=== PATIENT | female | born 1975 | race Caucasian/White ===

== ENCOUNTER → 2016-03-18 | Outpatient (CLI) | payer OTHER ==
[2016-03-18 12:14] LABS: BASO % 0 % (0-3); EOS % 1 % (0-3); HEMATOCRIT 36.8 % (36.0-47.0); HEMOGLOBIN 12.5 g/dL (12.0-15.5); LYMPH # 2.8 x10^3/uL (1.0-4.8); LYMPH % 36 % (24-48); MEAN CORPUSCULAR HEMOGLOBIN 29 pg (25-35); MEAN CORPUSCULAR HGB CONC 34 g/dL (31-37); MEAN CORPUSCULAR VOLUME 87 fL (79-100); MONO % 11 % (0-9); NEUT % 52 % (31-73); PLATELET COUNT 350 x10^3/uL (140-400); RED BLOOD COUNT 4.26 x10^6/uL (3.50-5.40); RED CELL DISTRIBUTION WIDTH 13.1 % (11.5-14.5); WHITE BLOOD COUNT 7.7 x10^3/uL (4.0-11.0)
[2016-03-18 12:26] LABS: ALBUMIN 3.9 g/dL (3.4-5.0); ALBUMIN/GLOBULIN RATIO 1.2 (1.0-1.7); CALCIUM 8.4 mg/dL (8.5-10.1); CREATININE 0.6 mg/dL (0.6-1.0); GFR 110.2; POTASSIUM 3.8 mmol/L (3.5-5.1); TOTAL BILIRUBIN 0.4 mg/dL (0.2-1.0); TOTAL PROTEIN 7.2 g/dL (6.4-8.2)
[2016-03-18 12:30] LABS: CHOLESTEROL/HDL RATIO 5.1
== END | disposition home or self-care (01) ==
LOC: LAB 11:48
PROVIDERS: ATTEND Family Medicine
DX: E03.9 Hypothyroidism, unspecified (principal); D64.9 Anemia, unspecified; E55.9 Vitamin D deficiency, unspecified
CPT/HCPCS: 36415; 80053; 80061; 82306; 84443; 85027

== ENCOUNTER → 2016-04-29 | Outpatient (CLI) | payer OTHER ==
--- NOTE | 2016-04-29 17:20 | RAD ---
EXAM: Left foot 3 views. HISTORY: Lateral left foot pain. COMPARISON: None. FINDINGS: No fractures are identified. Joint spaces and alignment are maintained. There is a small plantar calcaneal spur. IMPRESSION: 1. No fracture.
== END | disposition home or self-care (01) ==
LOC: RAD 12:09
PROVIDERS: ATTEND Nurse Practitioner Family
DX: M79.672 Pain in left foot (principal); M77.32 Calcaneal spur, left foot
CPT/HCPCS: 73630

== ENCOUNTER 2016-08-25 10:34 | Day surgery (SDC) | payer OTHER ==
[~2016-08-25] VITALS: Ht 162.6 cm; Wt 70.3 kg
[~2016-08-25 10:34] MED LIST: BALANCED SALT IRRIG OPHTH SOLN 15 ML BOTTLE. ONE; CHONDROIT-SOD-HYALURONATE KIT. ONE; CIPROFLOXACIN 0.3% OPHTH SOLUTION 5ML BOTTLE. OD ONE; IV RINGERS,LACTATED 1000ML 1,000 ML IV SCH; LIDOCAINE 1% 1 ML SYRINGE. ID PRN; LIDOCAINE 1% PF 2 ML VIAL. ONE; LIDOCAINE 2% JELLY 6ML IN APPLICATOR. MM PRN; NEO/POLYMYX/DEXAMETH OPHTH OINTMENT 3.5GM TUBE. ONE; PROPARACAINE 0.5% OPHTH SOLUTION 15ML BOTTLE. OD ONE
[2016-08-25] MEDS: PHENYLEPHRINE 10% OPHTH SOLUTION 5ML BOTTLE. OD SCH ×3 (11:20→11:30)
[2016-08-25] MEDS ORDERED: CHOL10003 PO (11:29)
[2016-08-25] MEDS ORDERED: NAPR500T3 PO (11:30)
[2016-08-25] MEDS ORDERED: FERR-26 PO (11:30)
[2016-08-25] MEDS: CYCLOPENTOLATE 1% OPTH SOLUTION 2ML BOTTLE. OD SCH ×3 (11:34→11:41)
[2016-08-25 11:40] LABS: NEG OBC UR NEG; POS OBC UR POS
[2016-08-25] MEDS ORDERED: MIDAZOLAM HCL/PF 2 MG/2 ML VIAL. ONE (12:18)
[2016-08-25] MEDS ORDERED: CHONDROIT-SOD-HYALURONATE KIT. ONE (12:46)
[2016-08-25] MEDS ORDERED: CHONDROITIN-SOD-HYALURONATE 0.5 ML DISP.SYRIN. ONE (12:46)
[2016-08-25 13:00] VITALS: BP 127/72
--- NOTE | 2016-08-25 20:14 | OP ---
DATE OF SURGERY: 08/25/2016 PREOPERATIVE DIAGNOSIS: Posterior subcapsular cataract, right eye. POSTOPERATIVE DIAGNOSIS: Posterior subcapsular cataract, right eye. PROCEDURE: Phacoemulsification with posterior chamber lens implant, right eye. ANESTHESIA: Topical with MAC. DESCRIPTION OF PROCEDURE: The patient's dilating drops and topical anesthesia were applied in the holding room and the [place] balloon cuff placed over the eye and inflated to 30 mmHg and allowed to act for about 15 minutes. The patient was then brought to the operating room and positioned on the table and the eye was prepped and draped in usual sterile manner for an intraocular procedure. A lid speculum was placed within the eyelids and the operating scope brought into position. A paracentesis incision was made superior temporally and 1% lidocaine injected in the anterior chamber. This was followed by an injection of Viscoat and then the primary 2.4 mm incision was made temporally. A capsulorrhexis was performed and the lens nucleus hydrodissected. The lens nucleus was then phacoemulsified without any difficulty ____. The cortex was cleaned up with the I/A handle. The bag was insufflated with Provisc and a posterior chamber lens implant was injected in the anterior chamber and positioned in the bag without difficulty. The Provisc was aspirated using the I/A handle. The wound was pressurized and the implant checked for final position and everything looked good. There was no wound leakage. The speculum and drape were removed and Maxitrol ointment instilled into the conjunctival sac and the eye was shielded. The patient was taken into the recovery room for postop discharge instructions. I will see the patient in 2 days in my office. K JANNETTE GODDARD MD DR: ANDREW/sasha JOB#: [id number] / [id number]
== END 2016-08-25 13:30 | disposition home or self-care (01) ==
LOC: SURG 10:34
PROVIDERS: ATTEND Ophthalmology
DX: H26.8 Other specified cataract (principal); D64.9 Anemia, unspecified; Z87.39 Personal history of other diseases of the musculoskeletal system and connective tissue; Z88.6 Allergy status to analgesic agent
CPT/HCPCS: 66984; 81025; C1780; J0171; J2250

== ENCOUNTER 2016-09-05 11:09 | Day surgery (SDC) | payer OTHER ==
[~2016-09-05 11:09] MED LIST changes: -BALANCED SALT IRRIG OPHTH SOLN 15 ML BOTTLE. ONE; +CHOL10003 PO; -CHONDROIT-SOD-HYALURONATE KIT. ONE; -CIPROFLOXACIN 0.3% OPHTH SOLUTION 5ML BOTTLE. OD ONE; +CIPROFLOXACIN 0.3% OPHTH SOLUTION 5ML BOTTLE. OS ONE; +CYCLOPENTOLATE 1% OPTH SOLUTION 2ML BOTTLE. OS SCH; +FERR-26 PO; -IV RINGERS,LACTATED 1000ML 1,000 ML IV SCH; -LIDOCAINE 1% 1 ML SYRINGE. ID PRN; -LIDOCAINE 1% PF 2 ML VIAL. ONE; -LIDOCAINE 2% JELLY 6ML IN APPLICATOR. MM PRN; +NAPR500T3 PO; -NEO/POLYMYX/DEXAMETH OPHTH OINTMENT 3.5GM TUBE. ONE; -PROPARACAINE 0.5% OPHTH SOLUTION 15ML BOTTLE. OD ONE
[2016-09-05] MEDS ORDERED: PHENYLEPHRINE 2.5% OPHTH SOLUTION 2ML BOTTLE. OS SCH (11:11)
[2016-09-05] MEDS ORDERED: PHENYLEPHRINE 10% OPHTH SOLUTION 5ML BOTTLE. OS SCH (11:11)
[2016-09-05] MEDS ORDERED: PROPARACAINE 0.5% OPHTH SOLUTION 15ML BOTTLE. OS ONE (11:11)
[2016-09-05 11:49] LABS: NEG OBC UR NEG; POS OBC UR POS
[2016-09-05] MEDS ORDERED: IV RINGERS,LACTATED 1000ML 1,000 ML IV ONE (12:00)
[2016-09-05] MEDS: LIDOCAINE 2% JELLY 6ML IN APPLICATOR. MM PRN ×2 (12:07→12:21)
[2016-09-05] MEDS ORDERED: NEO/POLYMYX/DEXAMETH OPHTH OINTMENT 3.5GM TUBE. OS ONE (12:56)
[2016-09-05] MEDS ORDERED: LIDOCAINE 1% PF 2 ML VIAL. INJ ONE (12:56)
[2016-09-05] MEDS ORDERED: BALANCED SALT IRRIG OPHTH SOLN 15 ML BOTTLE. IO ONE (12:56)
[2016-09-05] MEDS ORDERED: CHONDROIT-SOD-HYALURONATE KIT. OS ONE (12:56)
[2016-09-05 13:26] VITALS: BP 119/66
== END 2016-09-05 14:06 | disposition home or self-care (01) ==
LOC: SURG 11:09
PROVIDERS: ATTEND Ophthalmology
DX: H26.9 Unspecified cataract (principal); D64.9 Anemia, unspecified; Z72.89 Other problems related to lifestyle; Z88.6 Allergy status to analgesic agent; Z98.41 Cataract extraction status, right eye; Z87.39 Personal history of other diseases of the musculoskeletal system and connective tissue
CPT/HCPCS: 66984; 81025; C1780; J0171

== ENCOUNTER → 2016-09-11 | Outpatient (CLI) | payer OTHER ==
[2016-09-05 13:26] VITALS: BP 119/66
[~2016-09-11] MED LIST changes: -CIPROFLOXACIN 0.3% OPHTH SOLUTION 5ML BOTTLE. OS ONE; -CYCLOPENTOLATE 1% OPTH SOLUTION 2ML BOTTLE. OS SCH
[2016-09-11 10:22] LABS: BASO % 0 % (0-3); EOS % 1 % (0-3); HEMATOCRIT 37.5 % (36.0-47.0); LYMPH # 2.2 x10^3/uL (1.0-4.8); LYMPH % 36 % (24-48); MEAN CORPUSCULAR HEMOGLOBIN 30 pg (25-35); MEAN CORPUSCULAR HGB CONC 35 g/dL (31-37); MEAN CORPUSCULAR VOLUME 88 fL (79-100); MONO % 10 % (0-9); NEUT % 53 % (31-73); PLATELET COUNT 309 x10^3/uL (140-400); RED BLOOD COUNT 4.28 x10^6/uL (3.50-5.40); RED CELL DISTRIBUTION WIDTH 13.6 % (11.5-14.5); WHITE BLOOD COUNT 6.1 x10^3/uL (4.0-11.0)
[2016-09-11 10:41] LABS: % SAT IRON 23 % (15-34); IRON,SERUM 81 ug/dL (50-170)
[2016-09-11 10:53] LABS: ALBUMIN 4.2 g/dL (3.4-5.0); ALBUMIN/GLOBULIN RATIO 1.2 (1.0-1.7); CALCIUM 8.3 mg/dL (8.5-10.1); CREATININE 0.8 mg/dL (0.6-1.0); POTASSIUM 3.7 mmol/L (3.5-5.1); TOTAL BILIRUBIN 0.5 mg/dL (0.2-1.0); TOTAL PROTEIN 7.8 g/dL (6.4-8.2)
[2016-09-11 11:20] LABS: VITAMIN-B12 136 pg/mL (247-911)
[2016-09-11 11:24] LABS: FREE T4 0.83 ng/dL (0.76-1.46)
[2016-09-11 18:31] LABS: FOLATE > 24.00 ng/ml (3.2-20.0)
[2016-09-11 21:13] LABS: VITAMIN D25(OH)TOTAL 25.5 ng/mL (30.0-100.0)
[2016-09-12 13:17] LABS: THYROGLOBULIN ANTIBODY 0.7 IU/mL (0.0-0.9)
== END | disposition home or self-care (01) ==
LOC: LAB 09:43
PROVIDERS: ATTEND Nurse Practitioner Family
DX: E55.9 Vitamin D deficiency, unspecified (principal); R53.83 Other fatigue; E03.9 Hypothyroidism, unspecified; Z83.49 Family history of other endocrine, nutritional and metabolic diseases; Z86.2 Personal history of diseases of the blood and blood-forming organs and certain disorders involving the immune mechanism
CPT/HCPCS: 36415; 80053; 82306; 82607; 82728; 82746; 83540; 83550; 84439; 84443; 85027; 86376; 86800

== ENCOUNTER → 2016-12-16 | Outpatient (CLI) | payer OTHER ==
[~2016-12-16] MED LIST changes: -NAPR500T3 PO; +NAPR500T4 PO
== END | disposition home or self-care (01) ==
LOC: LAB 16:48
PROVIDERS: ATTEND Nurse Practitioner Family
DX: E53.8 Deficiency of other specified B group vitamins (principal); E55.9 Vitamin D deficiency, unspecified
CPT/HCPCS: 36415; 82306; 82607; 84443

== ENCOUNTER → 2017-06-11 | Outpatient (CLI) | payer OTHER ==
[2017-06-11 09:47] LABS: ADD MAN DIFF? NO
[2017-06-11 10:07] LABS: BASO % 0 % (0-3); EOS % 0 % (0-3); HEMATOCRIT 38.9 % (36.0-47.0); HEMOGLOBIN 12.8 g/dL (12.0-15.5); LYMPH % 24 % (24-48); MEAN CORPUSCULAR HEMOGLOBIN 29 pg (25-35); MEAN CORPUSCULAR HGB CONC 33 g/dL (31-37); MEAN CORPUSCULAR VOLUME 89 fL (79-100); MONO # 0.8 x10^3/uL (0.0-1.1); MONO % 7 % (0-9); NEUT # 8.7 x10^3uL (1.8-7.7); NEUT % 69 % (31-73); PLATELET COUNT 294 x10^3/uL (140-400); RED CELL DISTRIBUTION WIDTH 13.7 % (11.5-14.5); WHITE BLOOD COUNT 12.6 x10^3/uL (4.0-11.0)
[2017-06-11 10:12] LABS: % SAT IRON 49 % (15-34); IRON,SERUM 154 ug/dL (50-170)
[2017-06-11 10:16] LABS: ALBUMIN 3.9 g/dL (3.4-5.0); ALK PHOS 65 U/L (46-116); ALT (SGPT) 34 U/L (14-59); ANION GAP 9 (6-14); AST (SGOT) 12 U/L (15-37); BLOOD UREA NITROGEN 9 mg/dL (7-20); BUN/CREATININE RATIO 11 (6-20); CALCIUM 9.3 mg/dL (8.5-10.1); CARBON DIOXIDE 29 mmol/L (21-32); CHLORIDE 105 mmol/L (98-107); CREATININE 0.8 mg/dL (0.6-1.0); GFR 78.7; GLUCOSE 116 mg/dL (70-99); POTASSIUM 3.6 mmol/L (3.5-5.1); SODIUM 143 mmol/L (136-145); TOTAL BILIRUBIN 0.3 mg/dL (0.2-1.0); TOTAL PROTEIN 7.7 g/dL (6.4-8.2)
[2017-06-11 10:21] LABS: VITAMIN-B12 1178 pg/mL (247-911)
[2017-06-11 10:23] LABS: FREE T4 0.82 ng/dL (0.76-1.46)
[2017-06-11 17:40] LABS: FERRITIN 34 ng/mL (8-252)
== END | disposition home or self-care (01) ==
LOC: LAB 09:37
DX: E53.8 Deficiency of other specified B group vitamins (principal); E55.9 Vitamin D deficiency, unspecified; D50.9 Iron deficiency anemia, unspecified; E03.9 Hypothyroidism, unspecified; R53.83 Other fatigue
CPT/HCPCS: 36415; 80053; 82306; 82607; 82728; 82746; 83540; 83550; 84439; 84443; 85025

== ENCOUNTER → 2017-10-12 | Outpatient (CLI) | payer OTHER | END | disposition home or self-care (01) | LOC: LAB 12:35 | DX: E55.9 Vitamin D deficiency, unspecified (principal); E03.9 Hypothyroidism, unspecified; Z83.49 Family history of other endocrine, nutritional and metabolic diseases; Z86.2 Personal history of diseases of the blood and blood-forming organs and certain disorders involving the immune mechanism; Z87.39 Personal history of other diseases of the musculoskeletal system and connective tissue | CPT/HCPCS: 36415; 82306 ==